=== PATIENT | female | born 1975 | race Caucasian/White ===

== ENCOUNTER → 2016-11-13 | Outpatient (CLI) | payer BC ==
--- NOTE | 2016-11-13 13:21 | KCIC ---
Indication: Left second finger pain and injury. Time of exam 10 4:00 PM 3 views of the left hand were obtained. No prior studies are available for comparison. The metacarpals are intact. The phalanges are intact. No fractures are seen. Carpus is unremarkable. IMPRESSION: No acute bony abnormality is detected. Electronically signed by: Bharathi Moore MD (11/13/2016 1:18 PM) [id number]
== END | disposition home or self-care (01) ==
LOC: KCIC 12:47
PROVIDERS: ATTEND Surgery
DX: S69.92XA Unspecified injury of left wrist, hand and finger(s), initial encounter (principal); X58.XXXA Exposure to other specified factors, initial encounter; Y93.89 Activity, other specified; Y92.89 Other specified places as the place of occurrence of the external cause; Y99.8 Other external cause status
CPT/HCPCS: 73130